=== PATIENT | male | born 1955 | race Caucasian/White ===

== ENCOUNTER 2016-10-06 15:12 | Emergency (ER) | payer SELFPAY ==
[~2016-10-06] VITALS: Ht 170.2 cm; Wt 78.5 kg
[2016-10-06 15:16] VITALS: Ht 170.2 cm; Wt 78.5 kg
== END 2016-10-06 16:30 | disposition left against medical advice (07) ==
LOC: FTE 15:12
DX: Z53.21 Procedure and treatment not carried out due to patient leaving prior to being seen by health care provider (principal)